=== PATIENT | female | born 1995 | race Caucasian/White ===

== ENCOUNTER 2021-09-09 18:13 | Emergency (ER) | payer SELFPAY ==
[~2021-09-09] VITALS: Ht 167.6 cm; Wt 71.0 kg
[2021-09-09 18:20] VITALS: BP 126/80
== END 2021-09-09 23:13 | disposition left against medical advice (07) ==
LOC: ER 18:13
DX: Z53.21 Procedure and treatment not carried out due to patient leaving prior to being seen by health care provider (principal)